=== PATIENT | female | born 1990 | race Caucasian/White ===

== ENCOUNTER → 2021-11-01 | Outpatient (CLI) | payer OTHER ==
[~2021-11-01] VITALS: Ht 167.6 cm; Wt 104.3 kg
== END ==
LOC: OPSV 13:50
DX: Z72.51 High risk heterosexual behavior (principal)
CPT/HCPCS: 96372; J0561

== ENCOUNTER 2021-12-13 20:38 | Emergency (ER) | payer OTHER | END 2021-12-13 21:39 | disposition home or self-care (01) | LOC: ER1 20:38 | DX: U07.1 COVID-19 (principal); B34.9 Viral infection, unspecified; I10 Essential (primary) hypertension; Z88.1 Allergy status to other antibiotic agents | CPT/HCPCS: 99283; U0003 ==